=== PATIENT | female | born 1985 | race African-American/Black ===

== ENCOUNTER 2020-06-29 14:12 | Emergency (ER) | payer SELFPAY ==
--- NOTE | 2020-06-29 14:58 | NUR ---
called patient is sleeping did not answer
--- NOTE | 2020-06-29 18:17 | Emergency Room Report ---
History of Present Illness General Chief Complaint: To Be Triaged Present Illness HPI This patient left prior to evaluation by medical provider. Medical Decision Making PA Attestation Dr. Mcmanus is my supervising Physician whom patient management has been discussed with. Diagnostic Impression: Primary Impression: lwbs ER Course This patient left prior to evaluation by medical provider. Disposition: LEFT W/OUT BEING SEEN Condition: Unknown Referrals: NOT CHOSEN IPA/,REFERRING (PCP) Carlita Orozco Jun 29, 2020 18:17
== END 2020-06-29 17:00 | disposition left against medical advice (07) ==
LOC: EMR 15:24
DX: Z53.21 Procedure and treatment not carried out due to patient leaving prior to being seen by health care provider (principal)